=== PATIENT | female | born 1985 ===

== ENCOUNTER 2025-08-17 17:34 | Inpatient (IN) ==
[2025-08-17 19:00] LABS: Basophils # (Auto) 0.01 K/mcL (0.00-0.30); Basophils % (Auto) 0 % (0.0-2.0); Eosinophils # (Auto) 0 K/mcL (0.00-0.70); Eosinophils % (Auto) 0 % (0.0-7.0); Hematocrit 33.9 % (34.1-44.9); Hemoglobin 10.7 g/dL (11.2-15.7); Lymphocytes # (Auto) 0.54 K/mcL (1.50-4.80); Lymphocytes % (Auto) 2.6 % (15.5-49.0); Mean Corpuscular HGB Conc 31.6 g/dL (31.0-36.0); Monocytes # (Auto) 0.47 K/mcL (0.10-0.90); Monocytes % (Auto) 2.3 % (1.0-12.0); Neutrophils % (Auto) 93.9 % (38.0-78.0); Platelet Count 281 K/mcL (140-440); RBC 4.50 M/mcL (3.59-5.38); WBC 20.8 K/mcL (4.5-11.0)
[2025-08-17 19:13] LABS: HCG,Serum Negative
[2025-08-17] MEDS: LACTATED RINGERS 1,000 ML IV ONE ×2 (19:16→20:58)
[2025-08-17] MEDS: CEFEPIME 2 GM VIAL IV ONE (19:16)
[2025-08-17 19:19] LABS: Anion Gap 13.0 (8.0-16.0); Blood Urea Nitrogen 14 mg/dL (6-20); Calcium 8.5 mg/dL (8.6-10.4); Carbon Dioxide 22 mmol/L (22-30); Chloride 103 mmol/L (96-108); Glucose 119 mg/dL (70-105); Potassium 3.5 mmol/L (3.3-5.1); Sodium 138 mmol/L (133-145)
[2025-08-17] MEDS: VANCOMYCIN 1,000 MG in 0.9 % SODIUM CHLORIDE 250 ML IV ONE (19:23)
[2025-08-17] MEDS: KETOROLAC 30 MG/ML VIAL IV ONE (21:01)
[2025-08-17] MEDS: ACETAMINOPHEN 1,000 MG/100 ML BAG IV ONE (21:13)
[2025-08-17] MEDS ORDERED: ONDANSETRON 4 MG/2 ML VIAL IV PRN (22:24)
[2025-08-17] MEDS ORDERED: VANCOMYCIN PER PHARMACY IV SCH (22:24)
[2025-08-17] MEDS ORDERED: IPRATROPIUM/ALBUTEROL 3 ML AMPUL.NEB NEB PRN (22:24)
[2025-08-17] MEDS: 0.9 % SODIUM CHLORIDE 1,000 ML IV SCH (23:00)
[2025-08-17] MEDS: 0.9 % SODIUM CHLORIDE 10 ML SYRINGE IV SCH (23:00)
[2025-08-17] MEDS: cefTRIAXone 2 GM in DEXTROSE 5% IN WATER 50 ML IV SCH (23:01)
[2025-08-18] MEDS ORDERED: HYDROCORTISONE 10 MG TABLET PO SCH (00:15)
[2025-08-18 07:14] LABS: ALT/SGPT 44 U/L (<40); AST/SGOT 49 U/L (<32); Albumin 3.3 gm/dL (3.2-5.2); Albumin/Globulin Ratio 1.1 (1.0-2.3); Alkaline Phosphatase 64 U/L (39-117); Anion Gap 13.0 (8.0-16.0); Bilirubin,Total 0.4 mg/dL (0.1-1.0); Blood Urea Nitrogen 19 mg/dL (6-20); Calcium 8.1 mg/dL (8.6-10.4); Carbon Dioxide 20 mmol/L (22-30); Chloride 104 mmol/L (96-108); Globulin 3.0 gm/dL (2.2-3.7); Glucose 101 mg/dL (70-105); Potassium 3.6 mmol/L (3.3-5.1); Sodium 137 mmol/L (133-145)
[2025-08-18 07:22] LABS: Basophils # (Auto) 0.01 K/mcL (0.00-0.30); Basophils % (Auto) 0.1 % (0.0-2.0); Eosinophils # (Auto) 0 K/mcL (0.00-0.70); Eosinophils % (Auto) 0 % (0.0-7.0); Hematocrit 34.4 % (34.1-44.9); Hemoglobin 10.1 g/dL (11.2-15.7); Lymphocytes # (Auto) 0.51 K/mcL (1.50-4.80); Lymphocytes % (Auto) 2.8 % (15.5-49.0); Mean Corpuscular HGB Conc 29.4 g/dL (31.0-36.0); Monocytes # (Auto) 0.40 K/mcL (0.10-0.90); Monocytes % (Auto) 2.2 % (1.0-12.0); Neutrophils % (Auto) 94.4 % (38.0-78.0); RBC 4.27 M/mcL (3.59-5.38); WBC 17.9 K/mcL (4.5-11.0)
[2025-08-18] MEDS: HYDROmorphone 0.5 MG/0.5 ML SYRINGE IV PRN (07:49)
[2025-08-18] MEDS: HYDROCORTISONE 10 MG TABLET PO SCH (07:49)
[2025-08-18] MEDS: MULTIVIT,THER IRON,CA,FA & MIN 1 TABLET PO SCH (08:28)
[2025-08-18] MEDS: VITAMIN D3 25 MCG TABLET PO SCH (08:28)
[2025-08-18] MEDS: APIXABAN 2.5 MG TABLET PO SCH (08:28)
[2025-08-18] MEDS: ASCORBIC ACID 500 MG TABLET PO SCH (08:28)
[2025-08-18] MEDS: DOCUSATE SODIUM 100 MG CAPSULE PO SCH (08:31)
[2025-08-18] MEDS ORDERED: ENOXAPARIN 40 MG/0.4 ML SYRINGE SQ SCH (09:00)
[2025-08-18] MEDS: VANCOMYCIN 1,750 MG in 0.9 % SODIUM CHLORIDE 500 ML IV SCH (09:13)
[2025-08-18] MEDS: ACETAMINOPHEN 650 MG/65 ML BAG IV PRN (11:33)
[2025-08-18] MEDS: cefTRIAXone 2 GM in DEXTROSE 5% IN WATER 50 ML IV SCH (13:30)
[2025-08-18] MEDS: SENNOSIDES 1 TABLET PO SCH (21:51)
[2025-08-19 06:50] LABS: Basophils # (Auto) 0.02 K/mcL (0.00-0.30); Basophils % (Auto) 0.2 % (0.0-2.0); Eosinophils # (Auto) 0 K/mcL (0.00-0.70); Eosinophils % (Auto) 0 % (0.0-7.0); Hematocrit 28.3 % (34.1-44.9); Hemoglobin 8.5 g/dL (11.2-15.7); Lymphocytes # (Auto) 0.78 K/mcL (1.50-4.80); Lymphocytes % (Auto) 6.5 % (15.5-49.0); Mean Corpuscular HGB Conc 30.0 g/dL (31.0-36.0); Monocytes # (Auto) 0.41 K/mcL (0.10-0.90); Monocytes % (Auto) 3.4 % (1.0-12.0); Neutrophils % (Auto) 89.5 % (38.0-78.0); Platelet Count 205 K/mcL (140-440); RBC 3.57 M/mcL (3.59-5.38); WBC 11.9 K/mcL (4.5-11.0)
[2025-08-19 06:56] LABS: ALT/SGPT 32 U/L (<40); AST/SGOT 26 U/L (<32); Albumin 2.8 gm/dL (3.2-5.2); Albumin/Globulin Ratio 1.0 (1.0-2.3); Alkaline Phosphatase 61 U/L (39-117); Anion Gap 10.0 (8.0-16.0); Bilirubin,Total 0.3 mg/dL (0.1-1.0); Blood Urea Nitrogen 10 mg/dL (6-20); Calcium 7.6 mg/dL (8.6-10.4); Carbon Dioxide 19 mmol/L (22-30); Chloride 105 mmol/L (96-108); Globulin 2.7 gm/dL (2.2-3.7); Glucose 126 mg/dL (70-105); Potassium 2.9 mmol/L (3.3-5.1); Sodium 134 mmol/L (133-145)
[2025-08-19] MEDS: LOPERAMIDE 2 MG CAPSULE PO PRN (09:31)
[2025-08-19] MEDS: POTASSIUM CHLORIDE 10 MEQ/100 ML BAG IV SCH (09:31)
[2025-08-19] MEDS: ENOXAPARIN 40 MG/0.4 ML SYRINGE SQ SCH (09:32)
[2025-08-19] MEDS: ACETAMINOPHEN 325 MG TABLET PO PRN (13:44)
[2025-08-19 18:35] LABS: Potassium 3.4 mmol/L (3.3-5.1)
[2025-08-20 06:23] LABS: Basophils # (Auto) 0.01 K/mcL (0.00-0.30); Basophils % (Auto) 0.2 % (0.0-2.0); Eosinophils # (Auto) 0.11 K/mcL (0.00-0.70); Eosinophils % (Auto) 1.8 % (0.0-7.0); Hematocrit 25.6 % (34.1-44.9); Hemoglobin 7.7 g/dL (11.2-15.7); Lymphocytes # (Auto) 1.17 K/mcL (1.50-4.80); Lymphocytes % (Auto) 19.3 % (15.5-49.0); Mean Corpuscular HGB Conc 30.1 g/dL (31.0-36.0); Monocytes # (Auto) 0.39 K/mcL (0.10-0.90); Monocytes % (Auto) 6.4 % (1.0-12.0); Neutrophils % (Auto) 72.0 % (38.0-78.0); Platelet Count 176 K/mcL (140-440); RBC 3.30 M/mcL (3.59-5.38); WBC 6.1 K/mcL (4.5-11.0)
[2025-08-20 06:39] LABS: ALT/SGPT 66 U/L (<40); AST/SGOT 76 U/L (<32); Albumin 2.7 gm/dL (3.2-5.2); Albumin/Globulin Ratio 1.0 (1.0-2.3); Alkaline Phosphatase 111 U/L (39-117); Anion Gap 8.0 (8.0-16.0); Bilirubin,Total 0.3 mg/dL (0.1-1.0); Blood Urea Nitrogen 8 mg/dL (6-20); Calcium 8.0 mg/dL (8.6-10.4); Carbon Dioxide 22 mmol/L (22-30); Chloride 106 mmol/L (96-108); Globulin 2.7 gm/dL (2.2-3.7); Glucose 93 mg/dL (70-105); Potassium 3.3 mmol/L (3.3-5.1); Sodium 136 mmol/L (133-145)
[2025-08-20] MEDS: POTASSIUM CHLORIDE 20 MEQ TABLET PO ONE (12:19)
[2025-08-20] MEDS: AMPICILLIN SODIUM/SULBACTAM NA 3 GM in 0.9 % SODIUM CHLORIDE 100 ML IV SCH (12:24)
[2025-08-20] MEDS: DOXYCYCLINE 100 MG in DEXTROSE 5% IN WATER 100 ML IV SCH (13:10)
[2025-08-20] MEDS: POTASSIUM CHLORIDE 20 MEQ TABLET PO SCH ×2 (14:37→14:40)
[2025-08-20] MEDS: ENOXAPARIN 40 MG/0.4 ML SYRINGE ONE (22:58)
[2025-08-20] MEDS: HYDROmorphone 0.5 MG/0.5 ML SYRINGE ONE (22:58)
[2025-08-21 06:51] LABS: Basophils # (Auto) 0 K/mcL (0.00-0.30); Basophils % (Auto) 0 % (0.0-2.0); Eosinophils # (Auto) 0.08 K/mcL (0.00-0.70); Eosinophils % (Auto) 1.6 % (0.0-7.0); Hematocrit 24.3 % (34.1-44.9); Hemoglobin 7.5 g/dL (11.2-15.7); Lymphocytes # (Auto) 1.18 K/mcL (1.50-4.80); Lymphocytes % (Auto) 23.6 % (15.5-49.0); Mean Corpuscular HGB Conc 30.9 g/dL (31.0-36.0); Monocytes # (Auto) 0.50 K/mcL (0.10-0.90); Monocytes % (Auto) 10.0 % (1.0-12.0); Neutrophils % (Auto) 64.2 % (38.0-78.0); Platelet Count 187 K/mcL (140-440); RBC 3.19 M/mcL (3.59-5.38); WBC 5.0 K/mcL (4.5-11.0)
[2025-08-21] MEDS ORDERED: ONDANSETRON 4 MG/2 ML VIAL IV PRN (09:24)
[2025-08-21] MEDS ORDERED: ACETAMINOPHEN 325 MG TABLET PO PRN (09:25)
[2025-08-21] MEDS ORDERED: IPRATROPIUM/ALBUTEROL 3 ML AMPUL.NEB NEB PRN (09:25)
[2025-08-21] MEDS ORDERED: LOPERAMIDE 2 MG CAPSULE PO PRN (09:26)
[2025-08-21] MEDS ORDERED: VANCOMYCIN 1,000 MG in 0.9 % SODIUM CHLORIDE 250 ML IV ONE (09:30)
[2025-08-21 10:30] LABS: ALT/SGPT 124 U/L (<40); AST/SGOT 98 U/L (<32); Albumin 2.8 gm/dL (3.2-5.2); Albumin/Globulin Ratio 1.0 (1.0-2.3); Alkaline Phosphatase 158 U/L (39-117); Anion Gap 11.0 (8.0-16.0); Bilirubin,Total 0.3 mg/dL (0.1-1.0); Blood Urea Nitrogen 5 mg/dL (6-20); Calcium 8.0 mg/dL (8.6-10.4); Carbon Dioxide 22 mmol/L (22-30); Chloride 105 mmol/L (96-108); Globulin 2.9 gm/dL (2.2-3.7); Glucose 93 mg/dL (70-105); Potassium 3.6 mmol/L (3.3-5.1); Sodium 138 mmol/L (133-145)
[2025-08-21] MEDS: ENOXAPARIN 40 MG/0.4 ML SYRINGE SQ SCH (10:32)
[2025-08-21] MEDS: VITAMIN D3 25 MCG TABLET PO SCH (10:34)
[2025-08-21] MEDS: HYDROCORTISONE 10 MG TABLET PO SCH (10:34)
[2025-08-21] MEDS: MULTIVIT,THER IRON,CA,FA & MIN 1 TABLET PO SCH (10:35)
[2025-08-21] MEDS: ASCORBIC ACID 500 MG TABLET PO SCH (10:35)
[2025-08-21] MEDS: HYDROmorphone 0.5 MG/0.5 ML SYRINGE IV PRN (12:31)
[2025-08-21] MEDS: 0.9 % SODIUM CHLORIDE 10 ML SYRINGE IV SCH (13:17)
[2025-08-21] MEDS ORDERED: ENOXAPARIN 40 MG/0.4 ML SYRINGE SQ SCH (21:00)
[2025-08-21] MEDS: DOCUSATE SODIUM 100 MG CAPSULE PO SCH (21:11)
[2025-08-21] MEDS: SENNOSIDES 1 TABLET PO SCH (21:11)
[2025-08-21] MEDS: ACETAMINOPHEN 650 MG/65 ML BAG IV PRN (22:11)
[2025-08-22 06:46] LABS: Basophils # (Auto) 0.02 K/mcL (0.00-0.30); Basophils % (Auto) 0.3 % (0.0-2.0); Eosinophils # (Auto) 0.11 K/mcL (0.00-0.70); Eosinophils % (Auto) 1.5 % (0.0-7.0); Hematocrit 24.0 % (34.1-44.9); Hemoglobin 7.4 g/dL (11.2-15.7); Lymphocytes # (Auto) 1.39 K/mcL (1.50-4.80); Lymphocytes % (Auto) 19.5 % (15.5-49.0); Mean Corpuscular HGB Conc 30.8 g/dL (31.0-36.0); Monocytes # (Auto) 0.70 K/mcL (0.10-0.90); Monocytes % (Auto) 9.8 % (1.0-12.0); Neutrophils % (Auto) 66.8 % (38.0-78.0); Platelet Count 213 K/mcL (140-440); RBC 3.13 M/mcL (3.59-5.38); WBC 7.1 K/mcL (4.5-11.0)
[2025-08-22 06:53] LABS: ALT/SGPT 101 U/L (<40); AST/SGOT 48 U/L (<32); Albumin 2.8 gm/dL (3.2-5.2); Albumin/Globulin Ratio 1.0 (1.0-2.3); Alkaline Phosphatase 155 U/L (39-117); Anion Gap 8.0 (8.0-16.0); Bilirubin,Total 0.4 mg/dL (0.1-1.0); Blood Urea Nitrogen 5 mg/dL (6-20); Calcium 8.3 mg/dL (8.6-10.4); Carbon Dioxide 25 mmol/L (22-30); Chloride 103 mmol/L (96-108); Globulin 2.9 gm/dL (2.2-3.7); Glucose 98 mg/dL (70-105); Potassium 3.4 mmol/L (3.3-5.1); Sodium 136 mmol/L (133-145)
[2025-08-22] MEDS ORDERED: HYDROmorphone 0.5 MG/0.5 ML SYRINGE IV PRN (12:27)
[2025-08-22] MEDS: FUROSEMIDE 40 MG/4 ML VIAL IV SCH (12:45)
[2025-08-22] MEDS: FUROSEMIDE 40 MG/4 ML VIAL IV ONE (19:47)
[2025-08-22] MEDS: DOXYCYCLINE HYCLATE 100 MG TABLET.ORL PO SCH (21:01)
[2025-08-22] MEDS: AMOXICILLIN/POTASSIUM CLAV 875 MG TABLET PO SCH (21:01)
[2025-08-22] MEDS: IBUPROFEN 800 MG TABLET PO ONE (22:13)
[2025-08-23 06:46] LABS: Basophils # (Auto) 0.02 K/mcL (0.00-0.30); Basophils % (Auto) 0.2 % (0.0-2.0); Eosinophils # (Auto) 0.13 K/mcL (0.00-0.70); Eosinophils % (Auto) 1.5 % (0.0-7.0); Hematocrit 23.1 % (34.1-44.9); Hemoglobin 7.1 g/dL (11.2-15.7); Lymphocytes # (Auto) 1.83 K/mcL (1.50-4.80); Lymphocytes % (Auto) 20.8 % (15.5-49.0); Mean Corpuscular HGB Conc 30.7 g/dL (31.0-36.0); Monocytes # (Auto) 0.83 K/mcL (0.10-0.90); Monocytes % (Auto) 9.5 % (1.0-12.0); Neutrophils % (Auto) 63.4 % (38.0-78.0); Platelet Count 238 K/mcL (140-440); RBC 3.03 M/mcL (3.59-5.38); WBC 8.8 K/mcL (4.5-11.0)
[2025-08-23 07:01] LABS: ALT/SGPT 87 U/L (<40); AST/SGOT 34 U/L (<32); Albumin 2.8 gm/dL (3.2-5.2); Albumin/Globulin Ratio 0.9 (1.0-2.3); Alkaline Phosphatase 160 U/L (39-117); Anion Gap 9.0 (8.0-16.0); Bilirubin,Total 0.3 mg/dL (0.1-1.0); Blood Urea Nitrogen 7 mg/dL (6-20); Calcium 8.4 mg/dL (8.6-10.4); Carbon Dioxide 29 mmol/L (22-30); Chloride 101 mmol/L (96-108); Globulin 3.0 gm/dL (2.2-3.7); Glucose 100 mg/dL (70-105); Potassium 3.0 mmol/L (3.3-5.1); Sodium 139 mmol/L (133-145)
[2025-08-23] MEDS: FUROSEMIDE 20 MG TABLET PO SCH (12:11)
[2025-08-23] MEDS: POTASSIUM CHLORIDE 20 MEQ TABLET PO SCH (12:18)
[2025-08-23] MEDS ORDERED: HYDROmorphone 0.5 MG/0.5 ML SYRINGE IV PRN (14:25)
[2025-08-23] MEDS: IBUPROFEN 800 MG TABLET PO PRN (14:30)
[2025-08-23 17:03] LABS: Hematocrit 26.6 % (34.1-44.9); Hemoglobin 8.3 g/dL (11.2-15.7)
[2025-08-23 17:24] LABS: Potassium 3.5 mmol/L (3.3-5.1)
== END 2025-08-23 18:50 | disposition home or self-care (01) | DRG 872 ==
LOC: EDACCT# → ED 17:34 → MEDSUR 22:23
PROVIDERS: ADMIT Internal Medicine; ATTEND Student in an Organized Health Care Education/Training Program